=== PATIENT | female | born 1975 | race Caucasian/White ===

== ENCOUNTER → 2025-05-11 | Day surgery (SDC) | payer MEDICARE, OTHER ==
[2025-05-11] VITALS (8 sets, daily range): BP systolic 86–188; BP diastolic 44–111; PULSE 51–69; RESP 13–16; TEMP 98; O2SAT 97–99
[~2025-05-11] VITALS: Ht 175.3 cm; Wt 132.0 kg
[~2025-05-11] MED LIST: ALBU8HFA INH; CHOL10006 PO; DARATUMUMAB SQ; LEVO88TA7 PO; LIDOcaine 2% (20mg/ml) 5ml vial ONE; LORA10TA65 PO; MIDAZolam 1 MG/ML 5ML VIAL ONE; MULT-1085 PO; OMEP20CA15 PO; dexmedetomidine 200mcg/2ml inj. IV ONE; fentaNYL/PF 50MCG/1 ML 2ML syringe ONE; propofol inj 20 ML IV ONE; ringers solution, lacted 1,000 ML IV SCH
== END | disposition home or self-care (01) ==
LOC: GI LAB 07:12
PROVIDERS: ATTEND Internal Medicine Gastroenterology
DX: Z12.11 Encounter for screening for malignant neoplasm of colon (principal); E66.01 Morbid (severe) obesity due to excess calories; E03.9 Hypothyroidism, unspecified; J45.909 Unspecified asthma, uncomplicated; G47.30 Sleep apnea, unspecified; I25.2 Old myocardial infarction; G62.9 Polyneuropathy, unspecified; Z79.890 Hormone replacement therapy; Z79.899 Other long term (current) drug therapy; Z90.49 Acquired absence of other specified parts of digestive tract; Z98.890 Other specified postprocedural states; Z68.41 Body mass index [BMI] 40.0-44.9, adult; Z88.8 Allergy status to other drugs, medicaments and biological substances
CPT/HCPCS: A6449; G0121; J2003; J2250; J2704; J3010; J3490; J7120; Z7512; Z7610; 45378